=== PATIENT | female | born 1935 | race Caucasian/White ===

== ENCOUNTER → 2017-03-02 19:03 | Outpatient (CLI) | payer MEDICARE ==
[2013-05-07 08:53] VITALS: BMI 31.1
[~2017-03-02 19:03] MED LIST: CALCIUM 600+D T1 TA1 PO; CARTIA XT240 MG PO; FISH OIL 500 MG1 CAP PO; GLUCOVANCE 5/501 TAB PO; LISINOPRIL2.5 MG PO; MULTIPLE VITAMI1 TA1 PO; PRAVACHOL40 MG PO
== END | disposition home or self-care (01) ==
LOC: D.LAB 19:03
DX: N39.0 Urinary tract infection, site not specified (principal)

== ENCOUNTER → 2017-03-16 19:52 | Outpatient (CLI) | payer MEDICARE ==
[2013-05-07 08:53] VITALS: BMI 31.1
== END | disposition home or self-care (01) ==
LOC: D.LABREF 19:52
DX: N39.0 Urinary tract infection, site not specified (principal)